=== PATIENT | male | born 1990 | race Caucasian/White ===

== ENCOUNTER 2017-10-15 20:33 | Emergency (ER) | payer SELFPAY ==
[2017-10-15 20:46] VITALS: BP 143/91
--- NOTE | 2017-10-15 20:57 | UC ---
Skin Complaint HPI - HPI Summary HPI Summary: The patient is a 26-year-old male with the onset of rash primarily on his arms and legs that he noticed hours ago. He had taken a 2 g dose of Valtrex this morning for cold sore. He had never taken Valtrex before. He denies any chest pain shortness of breath throat tightness swelling of his tongue - History of Current Complaint Chief Complaint: UCAllergicReaction Time Seen by Provider: 10/15/17 20:42 Stated Complaint: ALLERGIC REACTION Hx Obtained From: Patient Onset/Duration: Gradual Onset, Lasting Hours Timing: Constant Onset Severity: Mild Current Severity: Mild Pain Intensity: 0 Pain Scale Used: 0-10 Numeric Location: Generalized Character: Redness, Raised Aggravating Factor(s): Nothing Alleviating Factor(s): Unknown Associated Signs & Symptoms: Positive: Rash Related History: Recent change in medication - Allergy/Home Medications Allergies/Adverse Reactions: Allergies Allergy/AdvReac Type Severity Reaction Status Date / Time No Known Allergies Allergy Verified 10/15/17 20:43 Home Medications: Home Medications ValACYclovir (*) [Valtrex 500 mg (*)] 1,000 mg PO BID 10/15/17 [History Confirmed 10/15/17] Review of Systems Constitutional: Negative Skin: Rash Eyes: Negative ENT: Negative Respiratory: Negative Cardiovascular: Negative Gastrointestinal: Negative Genitourinary: Negative Motor: Negative Neurovascular: Negative Musculoskeletal: Negative Neurological: Negative Psychological: Negative Is Patient Immunocompromised?: No All Other Systems Reviewed And Are Negative: Yes PMH/Surg Hx/FS Hx/Imm Hx Previously Healthy: Yes - Surgical History Surgical History: None - Family History Known Family History: Positive: Hypertension - Social History Alcohol Use: Daily Substance Use Type: None Smoking Status (MU): Never Smoked Tobacco Physical Exam Triage Information Reviewed: Yes Appearance: Well-Appearing, No Pain Distress, Well-Nourished Vital Signs: Initial Vital Signs Temp 98.7 F 10/15/17 20:41 Pulse 80 10/15/17 20:41 Resp 18 10/15/17 20:41 BP 143/91 10/15/17 20:41 Pulse Ox 99 10/15/17 20:41 Vital Signs Reviewed: Yes Eyes: Positive: Conjunctiva Clear ENT: Positive: Hearing grossly normal. Negative: Nasal congestion, Nasal drainage, Tonsillar exudate, Trismus, Muffled voice Neck: Positive: Supple, Nontender, No Lymphadenopathy Respiratory: Positive: Lungs clear, Normal breath sounds Cardiovascular: Positive: RRR, No Murmur Musculoskeletal: Positive: ROM Intact, No Edema Neurological: Positive: Alert Psychological Exam: Normal Skin: Positive: rashes - cold sore right lower lip/red/slight raised macular/ papular rash on arms/legs and a little on trunk Course/Dx - Diagnoses Provider Diagnoses: drug eruption Discharge - Sign-Out/Discharge Documenting (check all that apply): Patient Departure All imaging exams completed and their final reports reviewed: No Studies - Discharge Plan Condition: Stable Disposition: HOME Patient Education Materials: Acute Rash (ED) Referrals: [facility] [Outside] No Primary Care Phys,NOPCP [Primary Care Provider] - Additional Instructions: I think your rash is due to an allergy to valtrex stop valtrex use abreva benadryl 25 mg 2 every 6 hours as needed for rash recheck for new or worsening symptoms the benadryl may cause drowsiness --don't take and drive or work youi BP is a little high here try to find a MD to follow up with - Billing Disposition and Condition Condition: STABLE Disposition: Home
== END 2017-10-15 21:10 | disposition home or self-care (01) ==
LOC: UCEAST 20:33
DX: L27.1 Localized skin eruption due to drugs and medicaments taken internally (principal); T37.5X5A Adverse effect of antiviral drugs, initial encounter; Y92.9 Unspecified place or not applicable
CPT/HCPCS: 99201; G0463